=== PATIENT | female | born 1995 | race Two or more races ===

== ENCOUNTER 2025-09-18 03:50 | Observation (INO) | payer OTHER ==
[~2025-09-18] VITALS: Ht 154.9 cm; Wt 68.0 kg
[2025-09-18] MEDS: BETAMETHASONE ACET (30mg/5ml) 5ml Vial 6mg/ml IM ONE (07:07)
[2025-09-18] MEDS: TERBUTALINE SULFATE 1 MG/ML 1ML VIAL SC SCH (07:08)
--- NOTE | 2025-09-18 08:03 | DVH ---
BIOPHYSICAL PROFILE HISTORY: NO PNC TECHNIQUE: Multiple transabdominal real-time grayscale sonographic images through the gravid uterus of the fetus with duplex Doppler color flow and M-mode spectral analysis FINDINGS: BIOPHYSICAL PROFILE: breathing score: 2 movement score: 2 tone score: 2 Quantitative TODD score: 2 (TODD: 12.8 Cm.) Total score: 8 The cervix was not seen Single live fetus in cephalic presentation. heart rate 140 beats per minute. Grade II posterior fundal placenta without previa or abruption Single live fetus at 35 weeks 5 days Biophysical profile score 8/8 corresponding to an LAUREN of 10-18-25 Estimated weight 2761 g IMPRESSION: Biophysical profile score: 8/8
--- NOTE | 2025-09-18 08:44 | DVHDS2 ---
Physician Discharge Progress N Final Diagnosis: Contraction No Care at Operations or Procedures: Operations or Procedures S 30yo G3, [address], reports an EDC of 10/25/25 which she obtained from an US done at [facility]. No care. She reports having contractions, has had diarrhea and nausea x 2days. She reports movements as normal, no vaginal bleeding She reports no chronic medical condition, no surgery O: A&O x3 NAD. Afebrile, VSS Respiration: unlabored heart and lung sounds normal. Abdomen: Gravid, non-tender to palpation Extremities: No edema VE, Cx close EFM FHR baseline bpm, mod variability, Accels present, no decel BPP 8/8 NST reactive Cx length 5.5cm A: at 34w 5d by late 2nd/3rd trimester unofficial Ultrasound Abdominal pain Contractions Plan: IV hydration with LR Terbutaline 0.25mg subcutaneously Celestone 12mg im Obtain OB ultrasound, BPP & cervical length OB lab panel Re-assessment S:Pt reports feeling better O: No UCs noted on EFM A: at 34 + weeks by late US P Discharge home Return on 09/19/25 for 2nd dose of medication Establish care with an OB provider immediately 3rd trimester emergency S&S FMC, PTL & pre-eclampsia precautions reviewed with pt; advised to seek health care if any symptom including but not limited to any of the above. Condition on Discharge: Good Disposition: Home Discharge Instructions: Diet: Regular Activity: No Restrictions, As Tolerated Activity comment: Balance activities with rest periods Follow Up/Referral: Advised to establish care with an OB Provider immediately Medications: None Follow Up Care: Discharge Statement: Return for 2nd dose of Celestone tomorrow. 3rd trimester emergency S&S FMC, PTL & pre-eclampsia precautions reviewed with pt; advised to seek health care if any symptom including but not l imited to any of the above. "Patient was advised to return to the ER or call 911 if any headaches, dizziness, shortness of breath, chest pain, abdominal pain, bleeding, fevers, or worsening of medical condition. Patient was counseled about treatment plan, medications, possible side effects, patientverbalized understanding. All questions were answered to the best of my ability. This discharge took greater then 30 minutes in planning, reviewing documentation, counseling the patient, and discussing with other team members." Visit Coding OBGYN Date of Service: Sep 18, 2025 Billing Provider: SHELL SCHULTE CNM AIR MOVING TECHNICIAN Common Visit Codes: 43704-COO/OBS SAME DATE (HIGH) AIR MOVING TECHNICIAN Procedure Codes: 58222-67- NON-STRESS TEST SHELL SCHULTE CNM Sep 18, 2025 08:44
[2025-09-18 08:52] LABS: Hematocrit 32.3 % (36.0-46.0); Hemoglobin 11.1 g/dL (12.2-16.2); Mean Corpuscular Hemoglobin 30.9 pg (28.0-32.0); Mean Corpuscular Volume 89.9 fL (80.0-100.0); Nucleated Red Blood Cells % 0.1 %
[2025-09-18 08:57] LABS: Alanine Aminotransferase 19 U/L (7-40); Albumin 3.7 g/dL (3.2-4.8); Anion Gap 12 (5-15); Bilirubin, Total 0.8 mg/dL (0.2-1.0); Carbon Dioxide 23 mmol/L (20-31); Chloride 103 mmol/L (98-107); Sodium 138 mmol/L (136-145); Total Protein 6.3 g/dL (5.7-8.2)
[2025-09-18 09:00] LABS: Alkaline Phosphatase 205 U/L (46-116); BUN/Creatinine Ratio 9.6 (10.0-20.0); Blood Urea Nitrogen < 5 mg/dL (9-23); Calcium 8.4 mg/dL (8.7-10.4); Glucose 112 mg/dL (74-106); Potassium 3.2 mmol/L (3.5-5.1)
[2025-09-18 09:06] LABS: INR 0.9 (0.9-1.15); Partial Thromboplastin Time 27.4 SEC (24.5-34.5); Prothrombin Time 9.6 sec (9.3-11.8)
[2025-09-18 09:35] LABS: Urine Protein, UAD Negative (Negative)
[2025-09-18 09:46] LABS: Cannabinoid Screen, Urine Neg (NEGATIVE)
[2025-09-18 09:48] LABS: Amphetamine Screen, Urine Neg (NEGATIVE); Barbiturate Scree,Urine Neg (NEGATIVE); Benzodiazephine Screen, Urine Neg (NEGATIVE); Cocaine Screen, Urine Neg (NEGATIVE); Opiate Scree,Urine Neg (NEGATIVE); Phencyclidine Screen, Urine Neg (NEGATIVE)
== END 2025-09-18 08:31 | disposition home or self-care (01) ==
LOC: LDRP 03:50
PROVIDERS: ADMIT Obstetrics & Gynecology; ATTEND Obstetrics & Gynecology
DX: O60.03 Preterm labor without delivery, third trimester (principal); O26.893 Other specified pregnancy related conditions, third trimester; R11.0 Nausea; R19.7 Diarrhea, unspecified; R79.1 Abnormal coagulation profile; Z3A.34 34 weeks gestation of pregnancy; Z79.899 Other long term (current) drug therapy; Z98.890 Other specified postprocedural states
CPT/HCPCS: 36415; 59025; 76805; 76819; 80053; 80307; 81001; 81002; 83036; 85025; 85610; 85730; 86703; 86762; 86780; 86803; 86850; 86900; 86901; 87340; 94760; 96360; 96372; G0378; J0702; J3105

== ENCOUNTER 2025-09-19 06:17 | Observation (INO) | payer OTHER ==
[~2025-09-19] VITALS: Ht 154.9 cm; Wt 74.8 kg
[2025-09-19] MEDS: BETAMETHASONE ACET (30mg/5ml) 5ml Vial 6mg/ml IM ONE (07:03)
--- NOTE | 2025-09-19 11:40 | DVHDS2 ---
Physician Discharge Progress N Final Diagnosis: IUP at 34w 2nd dose of betamethasone Operations or Procedures: Operations or Procedures SUBJECTIVE Nikki Glasgow is a 30 yo with IUP at 34w6d presenting for scheduled second dose of betamethasone Denies feeling UCs, vaginal bleeding, or leaking fluid. Endorses positive movement. EDC: 10/25/2025 Review of Systems: Neuro: No complaints Heart: No complaints Lungs: No complaints GI: No complaints : No complaints Skin: No complaints Extremities: No complaints OBJECTIVE VSS FHR: Baseline: 120 Variability: Moderate Accelerations: Present Decelerations: Absent Category: 1 UCs: 1x. Patient did not feel Neuro: A&O x4. No apparent distress. Affect appropriate Heart: Regular rate and rhythm Lungs: Clear bilaterally GI: Gravid. No tenderness Skin: Dry and intact. No rashes or lesions ASSESSMENT 30 yo at 34w6d Category 1 Tracing PLAN -Patient given second dose of betamethasone IM. -Discussed labor precautions and kick counts. Answered all patient questions and concerns. Patient verbalizes understanding. Condition on Discharge: Good Disposition: Home Discharge Instructions: Diet: Regular Activity: No Restrictions, As Tolerated Medications: No change Follow Up Care: Discharge Statement: "Patient was advised to return to the ER or call 911 if any headaches, dizziness, shortness of breath, chest pain, abdominal pain, bleeding, fevers, or worsening of medical condition. Patient was counseled about treatment plan, medications, possible side effects, patientverbalized understanding. All questions were answered to the best of my ability. This discharge took greater then 30 minutes in planning, reviewing documentat ion, counseling the patient, and discussing with other team members." Visit Coding OBGYN Date of Service: Sep 19, 2025 Billing Provider: GLADYS MARQUES CNM ASSEMBLER CARDS AND ANNOUNCEMENTS Common Visit Codes: 31359-[id number] INP/OBS CARE (MOD) ASSEMBLER CARDS AND ANNOUNCEMENTS Procedure Codes: 27940-23- NON-STRESS TEST GLADYS MARQUES CNM Sep 19, 2025 07:02
== END 2025-09-19 07:20 | disposition home or self-care (01) ==
LOC: LDRP 06:17
PROVIDERS: ADMIT Obstetrics & Gynecology; ATTEND Obstetrics & Gynecology
DX: Z36.89 Encounter for other specified antenatal screening (principal); Z3A.34 34 weeks gestation of pregnancy; Z98.890 Other specified postprocedural states; Z79.899 Other long term (current) drug therapy
CPT/HCPCS: 59025; 81002; 94760; 96372; G0378; J0702

== ENCOUNTER 2025-10-19 14:39 | Inpatient (IN) | payer SELFPAY ==
[~2025-10-19] VITALS: Ht 154.9 cm; Wt 77.1 kg
[2025-10-19] MEDS ORDERED: LACTATED RINGER'S 1,000 ML IV SCH (15:30)
--- NOTE | 2025-10-19 15:52 | DVHHP ---
ADMIT DATE: 10/19/2025 CHIEF COMPLAINT: Labor. HISTORY OF PRESENT ILLNESS: The patient is a 30-year-old 3, para 2 with EDC 10/25, estimated gestational age of 39+ weeks, admitted for labor. The patient has no care. She denies having any vaginal bleeding. PAST MEDICAL HISTORY: None. PAST SURGICAL HISTORY: None. SOCIAL HISTORY: None. FAMILY HISTORY: None. CARPET FLOOR LAYER APPRENTICE HISTORY: Two normal vaginal delivery. REVIEW OF SYSTEMS: Consistent with HPI. ALLERGIES: No known drug allergies. PHYSICAL EXAMINATION: VITAL SIGNS: Stable, afebrile. HEENT: Within normal limits. CARDIOVASCULAR: Regular rate and rhythm. LUNGS: Clear to auscultation. BREASTS: Symmetrical. No masses. ABDOMEN: Gravid. Positive heart. PELVIC: 5 cm, 60, -3. EXTREMITIES: No clubbing, cyanosis or edema. IMPRESSION: * Intrauterine at 39+ weeks, in labor. * No care. PLAN: Obtain pelvic ultrasound, OB ultrasound. We will treat for unknown GBS. Obtain labs. Informed consent obtained. DO KAMRAN Smith TID: [id number] RECEIPT: [id number]
[2025-10-19 16:01] LABS: Hematocrit 35.2 % (36.0-46.0); Hemoglobin 12.0 g/dL (12.2-16.2); Mean Corpuscular Hemoglobin 30.8 pg (28.0-32.0); Mean Corpuscular Volume 90.2 fL (80.0-100.0); Nucleated Red Blood Cells % 0.1 %
[2025-10-19 16:18] LABS: Alanine Aminotransferase 21 U/L (7-40); Albumin 4.0 g/dL (3.2-4.8); Anion Gap 11 (5-15); BUN/Creatinine Ratio 12.5 (10.0-20.0); Bilirubin, Total 0.4 mg/dL (0.2-1.0); Calcium 9.1 mg/dL (8.7-10.4); Carbon Dioxide 22 mmol/L (20-31); Chloride 106 mmol/L (98-107); Glucose 83 mg/dL (74-106); Potassium 3.6 mmol/L (3.5-5.1); Sodium 139 mmol/L (136-145); Total Protein 6.6 g/dL (5.7-8.2)
[2025-10-19 16:23] LABS: Alkaline Phosphatase 281 U/L (46-116); Blood Urea Nitrogen 8 mg/dL (9-23)
[2025-10-19 16:24] LABS: INR 0.86 (0.9-1.15); Partial Thromboplastin Time 26.5 SEC (24.5-34.5); Prothrombin Time 9.3 sec (9.3-11.8)
[2025-10-19 16:31] LABS: Urine Protein, UAD Negative (Negative)
[2025-10-19] MEDS: DERMOPLAST 60ML BOTTLE TOP PRN (16:33)
[2025-10-19] MEDS: WITCH HAZEL-GLYCERIN PAD TOP PRN (16:33)
[2025-10-19] MEDS: PHISODERM TOP SOLN 240ML BTL TOP PRN (16:33)
[2025-10-19] MEDS: PENICILLIN G POT 5MIL/D5 50ML 50 ML IV ONE (16:34)
[2025-10-19 16:54] LABS: Amphetamine Screen, Urine Neg (NEGATIVE); Barbiturate Scree,Urine Neg (NEGATIVE); Benzodiazephine Screen, Urine Neg (NEGATIVE); Cannabinoid Screen, Urine Neg (NEGATIVE); Cocaine Screen, Urine Neg (NEGATIVE); Opiate Scree,Urine Neg (NEGATIVE); Phencyclidine Screen, Urine Neg (NEGATIVE)
--- NOTE | 2025-10-19 17:14 | DVH ---
LIMITED OB ULTRASOUND > 14 WKS: HISTORY: NO PNC TECHNIQUE: Multiple real-time grayscale images of the gravid uterus with duplex Doppler color flow and M-mode spectral analysis. TRANSDUCER: Transabdominal FINDINGS: IUP single live fetus at 30 weeks 0 days based on composite averages of the BPD, head circumference, abdominal circumference and femur length Estimated weight 3448 grams, 48.7% heart rate 138 beats per minute TODD 12.59 cm, mvp: 4.07 cm Cervix N/V Cephalic Presentation Right lateral Grade 2 Placenta without previa or abruption. ANATOMY: 4-CHAMBER HEART: Within normal limits STOMACH: Within normal limits RIGHT KIDNEY: Within normal limits LEFT KIDNEY: Within normal limits BLADDER: Within normal limits GESTATIONAL DATING: BPD: 9.5 cm= 30 weeks 5 days 73.7% range 35 weeks 4 days - 42 weeks 0 days HC: 34.58 cm= 40 weeks 0 days 61.0% range 37 weeks 2 days - 42 weeks 5 days AC: = 35.59 cm 39 weeks 3 days, 80.7% range 36 weeks 3 days- 42 weeks 4 days FL= 6.59 cm, 34 weeks 0 days less than 3% range 31 weeks 0 days 36 weeks 6 days CI: 77.87 range 70.00-86.00 FL/BPD: 69.37 range 71.0 -87.0 HC/AC: 0.97 range 0.90- 1.06 IMPRESSION: 1. IUP single live fetus at 38 weeks 0 days AUA corresponding to an LAUREN of 11/02/2025. 2. FHR: 138 beats per minute
[2025-10-19] MEDS: PENICILLIN G POTASSIUM 2,500,000 UNITS in D5W 5% 50 ML IV SCH (20:06)
[2025-10-19] MEDS: LACT. RINGERS/OXYTOCIN 20UNITS 500 ML IV ONE ×2 (22:41→22:43)
[2025-10-19] MEDS: LIDOCAINE 2%HCL (LOCAL ANESTH.) INJ 20ML MDV IJ PRN (22:43)
[2025-10-19] MEDS ORDERED: IBUPROFEN 800 MG TAB PO SCH (22:45)
[2025-10-19] MEDS ORDERED: ONDANSETRON HCL 4 MG/2 ML VIAL IV PRN (22:45)
[2025-10-19] MEDS: IBUPROFEN 800 MG TAB PO ONE (23:26)
--- NOTE | 2025-10-20 01:09 | DVHPN2 ---
FROYM Labor Progress Note Date and Time Seen Date Seen: Oct 19, 2025 Time Seen: 19:20 Subjective Patient reports: No new complaints Objective Vital Signs VSS Monitoring Method Monitoring Method: External Heart Rate Heart Rate Baseline: 125 Heart Rate Variability: Moderate Presence of FHR Accelerations: Yes Presence of FHR Decelerations: No Are all 5 Components of the FH: Yes Contractions Contractions Frequency: Other (5-7) Duration of Contraction: 75 Contractions Intensity: Moderate Contractions Resting Tone: Relaxed Membranes Membranes: Intact Vaginal Exam Vag Exam Deferred: No Vaginal Exam Dilation: 6 Vaginal Exam Effacement: 80 Vaginal Exam Station: -2 Vaginal Exam Presentation: VTX Vaginal Exam Show: None Medications Medications - Pitocin: No Medication - Epidural: No Medication - Other None Lab Results Lab Results Vital Signs Date Time Temp Pulse Resp B/P (MAP) Pulse Ox O2 Delivery O2 Flow Rate FiO2 10/20/25 02:34 98.5 73 18 120/67 (84) 100 98.5 10/20/25 00:15 Room Air I & O 10/20/25 07:00 Output Total 950 ml Balance -950 ml Output Urine Total 950 ml # Sanitary Pads 1 Current Medications Medications (Trade) Dose Ordered Sig/Ramirez Start Time Stop Time Status Last Admin Dose Admin Lactated Ringer's 1,000 ml @ 125 mls/hr Q8H 10/19/25 15:30 Penicillin G Potassium 50 ml @ 100 mls/hr ONCE ONCE 10/19/25 15:30 10/19/25 15:59 DC 10/19/25 16:34 100 MLS/HR Penicillin G Potassium [id number] units/Dextrose 50 ml @ 100 mls/hr Q4H 10/19/25 19:30 10/20/25 00:56 DC 10/19/25 20:06 100 MLS/HR Witch Gabby (Tucks) 1 pad PRN PRN 10/19/25 15:30 10/19/25 16:33 1 PAD Sodium Lauryl Sulfate (Phisoderm) 240 ml PRN PRN 10/19/25 15:30 10/19/25 16:33 240 ML Benzocaine (Dermoplast) 1 applic PRN PRN 10/19/25 15:30 10/19/25 16:33 1 APPLIC Lidocaine HCl (Xylocaine) 20 ml ONCE PRN 10/19/25 15:30 10/20/25 00:56 DC 10/19/25 22:43 20 ML Oxytocin 500 ml @ 999 mls/hr Q31M ONCE 10/19/25 15:30 10/19/25 16:00 DC 10/19/25 22:41 999 MLS/HR Oxytocin 500 ml @ 125 mls/hr Q4H ONCE 10/19/25 16:00 10/19/25 19:59 DC 10/19/25 22:43 125 MLS/HR Ibuprofen (Motrin Tablet) 600 mg Q6HP PRN 10/20/25 05:00 Acetaminophen (Tylenol Tablet) 650 mg Q4HP PRN 10/19/25 22:45 10/20/25 02:34 650 MG Ondansetron HCl (Zofran) 4 mg Q4HP PRN 10/19/25 22:45 Docusate Sodium (Colace Capsule) 200 mg HS 10/20/25 22:00 Ibuprofen (Motrin Tablet) 800 mg ONCE ONCE 10/19/25 23:00 10/19/25 23:01 DC 10/19/25 23:26 800 MG Laboratory Tests Test 10/19/25 15:45 10/19/25 15:25 10/19/25 15:03 Range/Units White Blood Count 7.0 4.4-10.8 10^3/uL Red Blood Count 3.90 L 4.0-5.20 10^6/uL Hemoglobin 12.0 L 12.2-16.2 g/dL Hematocrit 35.2 L 36.0-46.0 % Mean Corpuscular Volume 90.2 80.0-100.0 fL Mean Corpuscular Hemoglobin 30.8 28.0-32.0 pg Mean Corpuscular Hemoglobin Concent 34.1 32.0-36.0 g/dL Red Cell Distribution Width 13.9 11.8-14.3 % Platelet Count 280 140-450 10^3/uL Mean Platelet Volume 8.2 6.9-10.8 fL Neutrophils (%) (Auto) 66.4 37.0-80.0 % Lymphocytes (%) (Auto) 28.2 10.0-50.0 % Monocytes (%) (Auto) 4.0 0.0-12.0 % Eosinophils (%) (Auto) 0.7 0.0-7.0 % Basophils (%) (Auto) 0.7 0.0-2.0 % Neutrophils # (Auto) 4.7 1.6-8.6 10 ^3/uL Lymphocytes # (Auto) 2.0 0.4-5.4 10 ^3/uL Monocytes # (Auto) 0.3 0-1.3 10 ^3/uL Eosinophils # (Auto) 0 0-0.8 10 ^3/uL Basophils # (Auto) 0 0-0.2 10 ^3/uL Nucleated Red Blood Cells 0.1 % Prothrombin Time 9.3 9.3-11.8 sec Prothrombin Time INR 0.86 L 0.9-1.15 Activated Partial Thromboplast Time 26.5 24.5-34.5 SEC Sodium Level 139 136-145 mmol/L Potassium Level 3.6 3.5-5.1 mmol/L Chloride Level 106 98-107 mmol/L Carbon Dioxide Level 22 20-31 mmol/L Anion Gap 11 5-15 Blood Urea Nitrogen 8 L 9-23 mg/dL Creatinine 0.64 0.550-1.02 mg/dL Glomerular Filtration Rate Calc 123 >90 mL/min BUN/Creatinine Ratio 12.5 10.0-20.0 Serum Glucose 83 74-106 mg/dL Calcium Level 9.1 8.7-10.4 mg/dL Total Bilirubin 0.4 0.2-1.0 mg/dL Aspartate Amino Transferase (AST) 20 13-40 U/L Alanine Aminotransferase (ALT) 21 7-40 U/L Alkaline Phosphatase 281 H 46-116 U/L Total Protein 6.6 5.7-8.2 g/dL Albumin 4.0 3.2-4.8 g/dL Treponema pallidum Antibody Non-reactive Negative Urine Color Light-yellow Yellow Urine Clarity Clear Clear Urine pH 6.5 5.0-9.0 Urine Specific [place] 1.012 1.001-1.035 Urine Protein Negative Negative Urine Ketones Negative Negative Urine Blood Trace H Negative /uL Urine Nitrite Negative Negative Urine Bilirubin Negative Negative Urine Urobilinogen Normal Negative mg/dL Urine Leukocyte Esterase 1+ Negative /uL Urine RBC 1 0 - 4 /hpf Urine Microscopic WBC 9 H 0-5 /HPF Urine Squamous Epithelial Cells Few <5 /hpf Urine Bacteria None seen None Seen /hpf Urine Glucose Normal Normal mg/dL Urine Opiates Screen Neg NEGATIVE Urine Fentanyl Screen Neg NEGATIVE Urine Barbiturates Screen Neg NEGATIVE Urine Phencyclidine Screen Neg NEGATIVE Urine Amphetamines Screen Neg NEGATIVE Urine Benzodiazepines Screen Neg NEGATIVE Urine Cocaine Screen Neg NEGATIVE Urine Cannabinoids Screen Neg NEGATIVE Chlamydia trachomatis (ALAN) Pending Neisseria gonorrhoeae (ALAN) Pending Placental [id number] Negative Assessment Assessment <> IUP at 39w 1d <> No Care <> GBS Unknown <> Rubella Not Immune <> Category I FHR Tracing Plan Plan Patient offered option for augmentation of labor, amniotomy, elective section Benefits and Risks of each option discussed Pt prefers to try amniotomy Amniotomy - Performed, Clear fluid, moderate amount Intrauterine resuscitation PRN Labor Analgesia PRN Frequent position change to facilitate descent Supportive care Anticipate Plan discussed with: Patient, Spouse Visit Coding OBGYN Date of Service: Oct 19, 2025 Billing Provider: SHELL SCHULTE CNM ASPHALT PAVING SUPERINTENDENT Common Visit Codes: [id number] INP/OBS CARE(HIGH) ASPHALT PAVING SUPERINTENDENT Procedure Codes: 86315-08- NON-STRESS TEST SHELL SCHULTE CNM Oct 20, 2025 01:09
--- NOTE | 2025-10-20 01:49 | LDN2 ---
Labor and Delivery Note Date 10/20/25 Age 30 3 Para 2 -->3 AB 0 EDC 10/25/25 EGA 39w 1d Diagnosis <> IUP at 39w 1d <> Vaginal Delivery: VTX Vacuum Assisted: No Placenta: Spontaneous Sex: Male Weight 3865g (8Lbs 8ounces) Apgars 8 at one minute of life, 9 at five minutes of life Nuchal Cord Transected: No Amniotic Fluid: Clear Anesthesia Local anesthesia for Episiotomy / repair Episiotomy: Yes Extension: No Repaired with 2-0Vicryl EBL 300mL Labs Laboratory Tests 09/18/25 07:43: Hepatitis B Surface Antigen Negative, HIV (1&2) Antibody Negative, Rubella Antibody Negative Blood Bank 10/19/25 15:45: Blood Type O POSITIVE Complications Shoulder dystocia x One minute. Delivery of head at 2210, delivery of body at 2211 Conditions Mother and baby stable Poultry Offal Worker Davi Comments/Significant Med Tamiko At 22:11. 30yo, now delivered a viable Male by over an episiotomy. Shoulder dystocia noted following delivery of the head, same relieved with Miguel maneuver and episiotomy. JHON position. Cord clamped and cut, taken to radiant warmer for immediate assessment in anticipation of need for resuscitation. [place] w/ Score of 8 at one and 9 @ five minutes of life. Cord blood and cord gas sent. Intact 3-vessel cord placenta delivered spontaneously, Nisreen. Pitocin IV bolus started. Placenta sent to pathology. Episiotomy repaired with 2-0 Vicryl suture. Cervix/vagina inspected. Cervix intact. Fundus at U, firm, midline, and light lochia. QBL 300ml. VSS. Count correct x2. Patient to care and baby to couplet care, both stable. Rectal mucosa and sphincter intact. Rectal exam performed, WNL, not involved. Visit Coding OBGYN Date of Service: Oct 19, 2025 Billing Provider: SHELL SCHULTE CNM ALUMINUM SIDING APPLICATOR Common Visit Codes: [id number] INP/OBS CARE(HIGH) ALUMINUM SIDING APPLICATOR Procedure Codes: 44609-25- NON-STRESS TEST, 06906-ICS DELIVERY ONLY SHELL SCHULTE CNM Oct 20, 2025 01:49
[2025-10-20 02:34] VITALS: BP 120/67; PULSE 73; RESP 18; TEMP 98.5; O2SAT 100
[2025-10-20] MEDS: ACETAMINOPHEN 325 MG TAB PO PRN (02:34)
--- NOTE | 2025-10-20 06:42 | DVHPN2 ---
Progress Note Date Seen: Oct 20, 2025 Subjective S: > Lochia minimal > Tolerating regular diet well. > Ambulating and voiding well w/o feeling lightheaded or dizzy. > Passing flatus but no BM yet. Breast feeding. > Contraceptive plan: > Desires and requests to be discharged home tomorrow vital signs Vital Sign Date Time Temp Pulse Resp B/P (MAP) Pulse Ox O2 Delivery O2 Flow Rate FiO2 10/20/25 02:34 98.5 73 18 120/67 (84) 100 98.5 10/20/25 00:15 Room Air Total Intake and Output 10/19/25 10/19/25 10/20/25 15:00 23:00 07:00 Output Total 950 ml Balance -950 ml medications Current Medications Medications Dose Ordered Sig/Ramirez Route Start Time Stop Time Status Last Admin Dose Admin Lactated Ringer's 1,000 ml @ 125 mls/hr Q8H IV 10/19/25 15:30 Sindy Pierre 1 pad PRN PRN TOP 10/19/25 15:30 10/19/25 16:33 1 PAD Sodium Lauryl Sulfate 240 ml PRN PRN TOP 10/19/25 15:30 10/19/25 16:33 240 ML Benzocaine 1 applic PRN PRN TOP 10/19/25 15:30 10/19/25 16:33 1 APPLIC Ibuprofen 600 mg Q6HP PRN PO 10/20/25 05:00 Acetaminophen 650 mg Q4HP PRN PO 10/19/25 22:45 10/20/25 02:34 650 MG Ondansetron HCl 4 mg Q4HP PRN IV 10/19/25 22:45 Docusate Sodium 200 mg HS PO 10/20/25 22:00 Ibuprofen 800 mg ONCE PO 10/19/25 22:45 UNV laboratory and microbiology Laboratory Tests 10/19/25 15:45 Test 10/19/25 15:45 Range/Units Serum Glucose 83 74-106 mg/dL Objective > A&O x3 NAD. > Afebrile, VSS > Chest: heart and lung sounds normal. > Breasts: Nipples intact w/o cracks or soreness > Abdomen: normal BS, soft, non-tender, no rebound or guarding, fundus firm @ U-1, lochia minimal > Perineum:- no edema, or erythema, Episiotomy site with sutures intact, edges in good approximation. > Extremities: no edema or tenderness Problems(with codes): (1) Shoulder dystocia during labor and delivery, delivered Assessment/Plan > 30yo now ppd#1 s/p doing well. > Blood Type: O Rh: Positive > Breast feeding > Rubella Non Immune > Pain control with oral medications > Bowel regimen: Increase fluid intake and fiber in diet, Laxative PRN > PP BCM Plan: Contemplating Vasectomy > Discharge plan: May discharge home tomorrow if condition remains stable Plan discussed with: Patient, Spouse Visit Coding OBGYN Date of Service: Oct 20, 2025 Billing Provider: SHELL SCHULTE CNM CIVIL DRAFTER Common Visit Codes: 04427-[id number] INP/OBS CARE(HIGH) SHELL SCHULTE CNM Oct 20, 2025 06:42
[2025-10-20 07:00] VITALS: BP 115/71; PULSE 61; RESP 16; TEMP 97.5; O2SAT 97
[2025-10-20 11:00] VITALS: BP 114/59; PULSE 78; RESP 16; TEMP 97.5; O2SAT 98
[2025-10-20] MEDS: IBUPROFEN 600 MG TAB PO PRN (14:48)
[2025-10-20 14:51] VITALS: BP 125/68; PULSE 95; RESP 17; TEMP 97.5; O2SAT 95
[2025-10-20 18:47] VITALS: BP 121/68; PULSE 93; RESP 18; TEMP 98.5; O2SAT 99
[2025-10-20] MEDS ORDERED: DOCUSATE SOD 100 MG CAP PO SCH (22:00)
[2025-10-20 22:40] VITALS: BP 123/76; PULSE 88; RESP 18; TEMP 98.4; O2SAT 99
[2025-10-21 03:23] VITALS: BP 116/70; PULSE 71; RESP 17; TEMP 98.1; O2SAT 98
--- NOTE | 2025-10-21 05:35 | DVHDS2 ---
Discharge Summary Date of Admission Oct 19, 2025 at 15:15 Date of Discharge: Oct 21, 2025 Admitting Diagnosis status post shoulder dystocia Labs/Diagnostic Data: Laboratory Results Test 10/19/25 15:45 10/19/25 15:25 10/19/25 15:03 White Blood Count 7.0 10^3/uL (4.4-10.8) Red Blood Count 3.90 10^6/uL (4.0-5.20) Hemoglobin 12.0 g/dL (12.2-16.2) Hematocrit 35.2 % (36.0-46.0) Mean Corpuscular Volume 90.2 fL (80.0-100.0) Mean Corpuscular Hemoglobin 30.8 pg (28.0-32.0) Mean Corpuscular Hemoglobin Concent 34.1 g/dL (32.0-36.0) Red Cell Distribution Width 13.9 % (11.8-14.3) Platelet Count 280 10^3/uL (140-450) Mean Platelet Volume 8.2 fL (6.9-10.8) Neutrophils (%) (Auto) 66.4 % (37.0-80.0) Lymphocytes (%) (Auto) 28.2 % (10.0-50.0) Monocytes (%) (Auto) 4.0 % (0.0-12.0) Eosinophils (%) (Auto) 0.7 % (0.0-7.0) Basophils (%) (Auto) 0.7 % (0.0-2.0) Neutrophils # (Auto) 4.7 10 ^3/uL (1.6-8.6) Lymphocytes # (Auto) 2.0 10 ^3/uL (0.4-5.4) Monocytes # (Auto) 0.3 10 ^3/uL (0-1.3) Eosinophils # (Auto) 0 10 ^3/uL (0-0.8) Basophils # (Auto) 0 10 ^3/uL (0-0.2) Nucleated Red Blood Cells 0.1 % Prothrombin Time 9.3 sec (9.3-11.8) Prothrombin Time INR 0.86 (0.9-1.15) Activated Partial Thromboplast Time 26.5 SEC (24.5-34.5) Sodium Level 139 mmol/L (136-145) Potassium Level 3.6 mmol/L (3.5-5.1) Chloride Level 106 mmol/L (98-107) Carbon Dioxide Level 22 mmol/L (20-31) Anion Gap 11 (5-15) Blood Urea Nitrogen 8 mg/dL (9-23) Creatinine 0.64 mg/dL (0.550-1.02) Glomerular Filtration Rate Calc 123 mL/min (>90) BUN/Creatinine Ratio 12.5 (10.0-20.0) Serum Glucose 83 mg/dL (74-106) Calcium Level 9.1 mg/dL (8.7-10.4) Total Bilirubin 0.4 mg/dL (0.2-1.0) Aspartate Amino Transferase (AST) 20 U/L (13-40) Alanine Aminotransferase (ALT) 21 U/L (7-40) Alkaline Phosphatase 281 U/L (46-116) Total Protein 6.6 g/dL (5.7-8.2) Albumin 4.0 g/dL (3.2-4.8) Treponema pallidum Antibody Non-reactive (Negative) Urine Color Light-yellow (Yellow) Urine Clarity Clear (Clear) Urine pH 6.5 (5.0-9.0) Urine Specific [place] 1.012 (1.001-1.035) Urine Protein Negative (Negative) Urine Ketones Negative (Negative) Urine Blood Trace /uL (Negative) Urine Nitrite Negative (Negative) Urine Bilirubin Negative (Negative) Urine Urobilinogen Normal mg/dL (Negative) Urine Leukocyte Esterase 1+ /uL (Negative) Urine RBC 1 /hpf (0 - 4) Urine Microscopic WBC 9 /HPF (0-5) Urine Squamous Epithelial Cells Few /hpf (<5) Urine Bacteria None seen /hpf (None Seen) Urine Glucose Normal mg/dL (Normal) Urine Opiates Screen Neg (NEGATIVE) Urine Fentanyl Screen Neg (NEGATIVE) Urine Barbiturates Screen Neg (NEGATIVE) Urine Phencyclidine Screen Neg (NEGATIVE) Urine Amphetamines Screen Neg (NEGATIVE) Urine Benzodiazepines Screen Neg (NEGATIVE) Urine Cocaine Screen Neg (NEGATIVE) Urine Cannabinoids Screen Neg (NEGATIVE) Placental [id number] Negative Other Laboratory Tests 10/19/25 15:45 Brief Hx & Hospital Course: spontaneous vag delivery Consults/Reason for consult none Operations or Procedures vaginal delivery Condition at Discharge: Good Final Diagnosis/Problems List s/p vag delivery Discharge Disposition: Home SNF Discharge Will this Physician continue t: No Discharge Instruct/Medications Diet: Regular Activity: Light activity Activity comment: pelvic rest 6 weeks Follow Up/Referral: as scheduled No Active Prescriptions or Reported Meds Discharge Statement: "Patient was advised to return to the ER or call 911 if any headaches, dizziness, shortness of breath, chest pain, abdominal pain, bleeding, fevers, or worsening of medical condition. Patient was counseled about treatment plan, medications, possible side effects, patientverbalized understanding. All questions were answered to the best of my ability. This discharge took greater then 30 minutes in planning, reviewing documentation, counseling the patient, and discussing with other team members." ASSESSMENT ASSESSMENT Hospital Course vaginal delivery Assessment stable see dc summary Visit Coding OBGYN Date of Service: Oct 21, 2025 Billing Provider: TIMOTHY ESCUDERO DO MOTORMAN/WOMAN Common Visit Codes: 69788-EOC/OBS SAME DATE (MOD), 74531-UQA/OBS SAME DATE (HIGH) MOTORMAN/WOMAN Procedure Codes: 60069-UUMND OB CARE,VAG DELIVERY TIMOTHY ESCUDERO DO Oct 21, 2025 05:35
[2025-10-21 07:00] VITALS: BP 109/61; PULSE 89; RESP 18; TEMP 97.2; O2SAT 98
[2025-10-21 10:50] VITALS: TEMP 36.2
[2025-10-21 11:00] VITALS: BP 132/85; PULSE 87; RESP 18; TEMP 97.7; O2SAT 99
[2025-10-22 03:07] LABS: Chlamydia Trachomatis, NAA Negative (Negative); Neisseria gonorrhoeae, NAA Negative (Negative)
== END 2025-10-21 12:58 | disposition home or self-care (01) | DRG 807 ==
LOC: LDRP 14:39 → OBSVTOIN 15:15 → LDRP 16:03
PROVIDERS: ADMIT Obstetrics & Gynecology; ATTEND Obstetrics & Gynecology
PROC: 10E0XZZ Delivery of Products of Conception, External Approach (ICD-10-PCS; principal; 2025-10-20)
PROC: 0W8NXZZ Division of Female Perineum, External Approach (ICD-10-PCS; 2025-10-20)
DX: O66.0 Obstructed labor due to shoulder dystocia (principal); Z37.0 Single live birth; Z3A.39 39 weeks gestation of pregnancy
CPT/HCPCS: 36415; 59025; 59409; 76805; 80053; 80307; 81001; 81002; 84112; 85025; 85610; 85730; 86780; 86850; 86900; 86901; 94760; 96360; 96361; 96365; 96366; G0378; J2540; J2590; J7060